=== PATIENT | male | born 1995 | race Caucasian/White ===

== ENCOUNTER 2021-03-24 12:59 | Emergency (ER) | payer MEDICAID ==
[2021-03-24] MEDS ORDERED: Ketorolac 60 MG/2 ML SDV IM ONE (14:59)
--- NOTE | 2021-03-24 15:33 | EDM.PDOC ---
ED HPI GENERAL MEDICAL PROBLEM - General Chief Complaint: Cardiovascular Problem Stated Complaint: CHEST PAIN Time Seen by Provider: 03/24/21 13:45 - History of Present Illness INITIAL COMMENTS - FREE TEXT/NARRATIVE: Pt comes in with C/O chest pain on the left side with taking a deep breath or some activity. He has no recent falls or injuries. He is not ill, no coughing or SOB. No hx of similar symptoms. chest Pain Score (Numeric/FACES): 3 - Related Data Allergies Allergy/AdvReac Type Severity Reaction Status Date / Time No Known Allergies Allergy Verified 03/24/21 14:23 Home Meds: Home Meds NK [No Known Home Meds] 03/24/21 [History] Past Medical History - Past Health History Medical/Surgical History: Denies Medical/Surgical History Social & Family History - Tobacco Use Tobacco Use Status *Q: Former Tobacco User Used Tobacco, but Quit: Yes Month/Year Tobacco Last Used: 02/2021 ED ROS GENERAL - Review of Systems Review Of Systems: Comprehensive ROS is negative, except as noted in HPI. Respiratory: Reports: Pleuritic Chest Pain ED EXAM, GENERAL - Physical Exam Exam: See Below Respiratory/Chest: Other (Pain with deep breathing today. No pain with palpation of the chest wall.) #1 Interpretation EKG Date: 03/24/21 Time: 14:00 Course - Vital Signs Last Recorded V/S: Last Vital Signs Temp 98.1 F 03/24/21 14:25 Pulse 79 03/24/21 14:25 Resp 16 03/24/21 14:25 BP 137/85 03/24/21 14:25 Pulse Ox 97 03/24/21 14:25 - Orders/Labs/Meds Orders: Active Orders 24 hr Category Date Time Status Chest 1V Frontal [CR] Stat Exams 03/24/21 14:24 Taken Labs: Laboratory Tests 03/24/21 03/24/21 03/24/21 Range/Units 13:13 14:30 14:30 WBC 7.6 (4.0-11.0) K/uL RBC 5.30 (4.50-6.50) M/uL Hgb 15.8 (13.0-18.0) g/dL Hct 45.1 (40.0-54.0) % MCV 85 (76-96) fL MCH 29.8 (27.0-32.0) pg MCHC 35.0 (31.0-35.0) g/dL RDW 12.3 (11.0-16.0) % Plt Count 249 (150-400) K/uL MPV 9.6 (6.0-10.0) fL Neut % (Auto) 60.4 (45.0-70.0) % Lymph % (Auto) 28.0 (20.0-40.0) % Dickson % (Auto) 8.1 (3.0-10.0) % Eos % (Auto) 3.0 (1.0-5.0) % Baso % (Auto) 0.5 (0.0-0.5) % Neut # (Auto) 4.56 (2.00-7.50) K/uL Lymph # (Auto) 2.12 (1.50-4.00) K/uL Dickson # (Auto) 0.61 (0.20-0.80) K/uL Eos # (Auto) 0.23 (0.04-0.40) K/uL Baso # (Auto) 0.04 (0.02-0.10) K/uL Sodium 139 (136-145) mmol/L Potassium 4.5 (3.5-5.1) mmol/L Chloride 103 (98-107) mmol/L Carbon Dioxide 28.5 (21.0-32.0) mmol/L Anion Gap 12.0 (5.0-15.0) mmol/L BUN 18 (8-26) mg/dL Creatinine 1.06 (0.70-1.30) mg/dL Est Cr Clr Drug Dosing TNP Estimated GFR (MDRD) > 60 (>60) MLS/MIN BUN/Creatinine Ratio 17.0 (6-25) Glucose 132 H (74-100) mg/dL Calcium 9.2 (8.5-10.1) mg/dL Total Bilirubin 0.4 (0.0-1.0) mg/dL AST 20 (15-37) U/L ALT 41 (12-78) U/L Alkaline Phosphatase 49 (46-116) U/L Troponin I < 0.017 (0.000-0.060) ng/mL Total Protein 7.6 (6.4-8.2) g/dL Albumin 4.0 (3.4-5.0) g/dL Globulin 3.6 (2.2-4.2) g/dL Albumin/Globulin Ratio 1.1 (0.8-2.0) SARS-CoV-2 RNA (MARKUS) Negative (NEGATIVE) Meds: Medications Discontinued Medications Generic Name Dose Route Start Last Admin Trade Name Freq PRN Reason Stop Dose Admin Ketorolac Tromethamine 60 mg 03/24/21 14:59 03/24/21 15:14 Ketorolac 60 Mg/2 Ml Sdv IM 03/24/21 15:00 60 mg ONETIME ONE Administration - Re-Assessments/Exams Free Text/Narrative Re-Assessment/Exam: 03/24/21 15:31 Labs and CXR are nml. He has pleuritic chest pain. Toradol 60 mg given IM. He will be discharged home. Use Motrin 600 - 800 mg TID until pain is resolving, then prn. Activity as tolerated. Re check prn. Departure - Departure Time of Disposition: 15:15 Disposition: Home, Self-Care 01 Condition: Good Clinical Impression: Pleuritic chest pain Instructions: Nonspecific Chest Pain, Adult, [id number] Referrals: PCP,None [Primary Care Provider] - Forms: ED Department Discharge Additional Instructions: Take ibuprofen as needed for pain, alternate with tylenol. Return to ED as necessary or follow up with primary care provider in the clinic. Sepsis Event Note (ED) - Evaluation Sepsis Screening Result: No Definite Risk - Focused Exam Vital Signs: Vital Signs Temp Pulse Resp BP Pulse Ox 03/24/21 14:25 98.1 F 79 16 137/85 97 - My Orders Last 24 Hours: My Active Orders 03/24/21 14:24 Chest 1V Frontal [CR] Stat - Assessment/Plan Last 24 Hours: My Active Orders 03/24/21 14:24 Chest 1V Frontal [CR] Stat
--- NOTE | 2021-03-24 18:43 | CR ---
CLINICAL DATA: Chest pain. AP CHEST: The heart size is normal. The lungs are clear. No pneumothorax. No pleural effusions. No evidence of acute intrathoracic disease. Job: [id number] MTDD
== END 2021-03-24 15:15 | disposition home or self-care (01) ==
LOC: LB.ED 12:59
DX: R07.81 Pleurodynia (principal); Z87.891 Personal history of nicotine dependence; Z20.822 Contact with and (suspected) exposure to COVID-19
CPT/HCPCS: 36415; 71045; 80053; 84484; 85025; 87635; 93005; 96372; 99285; J1885; U0002

== ENCOUNTER 2022-10-17 16:33 | Emergency (ER) | payer MEDICAID ==
[2022-10-17 17:09] VITALS: BP 142/92; PULSE 88
== END 2022-10-17 17:18 | disposition home or self-care (01) ==
LOC: LB.ED 16:33
DX: S39.012A Strain of muscle, fascia and tendon of lower back, initial encounter (principal); X50.1XXA Overexertion from prolonged static or awkward postures, initial encounter
CPT/HCPCS: 99282; 99283

== ENCOUNTER 2023-04-19 16:16 | Emergency (ER) | payer MEDICAID ==
[2023-04-19] MEDS ORDERED: Ketorolac 60 MG/2 ML SDV IM ONE (17:56)
[2023-04-19] MEDS ORDERED: traMADol 50 MG Tab ONE (18:00)
[2023-04-19] MEDS ORDERED: Ketorolac 60 MG/2 ML SDV ONE (18:01)
== END 2023-04-19 18:33 | disposition home or self-care (01) ==
LOC: LB.ED 16:16
DX: M72.2 Plantar fascial fibromatosis (principal); Z91.030 Bee allergy status
CPT/HCPCS: 96372; 99283; A9270-GY; J1885

== ENCOUNTER 2023-06-22 21:26 | Emergency (ER) | payer MEDICAID ==
[2023-06-22] MEDS ORDERED: Ciprofloxacin 0.3% Ophth Soln 2.5 ML Bottle ONE (22:00)
[2023-06-22] MEDS ORDERED: Tetracaine HCl/PF 0.5% 4 ML Bottle EYERT ONE (22:05)
== END 2023-06-22 22:10 | disposition home or self-care (01) ==
LOC: LB.ED 21:26
DX: H10.31 Unspecified acute conjunctivitis, right eye (principal); Z91.030 Bee allergy status
CPT/HCPCS: 99283; A9270-GY

== ENCOUNTER 2023-07-10 18:27 | Emergency (ER) | payer MEDICAID ==
[2023-07-10] MEDS ORDERED: methylPREDNISolone Sodium Succinate 125 MG/2 ML SDV ONE (18:59)
[2023-07-10] MEDS ORDERED: methylPREDNISolone Sodium Succinate 125 MG/2 ML SDV IM SCH (19:15)
[2023-07-10] MEDS ORDERED: traMADol 50 MG Tab ONE (19:30)
== END 2023-07-10 19:48 | disposition home or self-care (01) ==
LOC: LB.ED 18:27
DX: M72.2 Plantar fascial fibromatosis (principal); F17.210 Nicotine dependence, cigarettes, uncomplicated; Z91.030 Bee allergy status
CPT/HCPCS: 96372; 99283; A9270-GY; J2930

== ENCOUNTER 2023-07-26 12:56 | Emergency (ER) | payer MEDICAID | END 2023-07-26 15:10 | disposition home or self-care (01) | LOC: LB.ED 12:56 | DX: M72.2 Plantar fascial fibromatosis (principal); E66.9 Obesity, unspecified; F17.210 Nicotine dependence, cigarettes, uncomplicated; Z68.41 Body mass index [BMI] 40.0-44.9, adult; Z91.030 Bee allergy status | CPT/HCPCS: 99283 ==

== ENCOUNTER 2023-10-19 15:11 | Emergency (ER) | payer MEDICAID ==
[2023-10-19] MEDS: methylPREDNISolone Sodium Succinate 125 MG/2 ML SDV IM ONE (15:57)
== END 2023-10-19 16:05 | disposition home or self-care (01) ==
LOC: LB.ED 15:11
DX: M72.2 Plantar fascial fibromatosis (principal); E66.9 Obesity, unspecified; Z68.41 Body mass index [BMI] 40.0-44.9, adult; Z91.030 Bee allergy status
CPT/HCPCS: 96372; 99283; J2930